=== PATIENT | male | born 1985 | race Caucasian/White ===

== ENCOUNTER → 2017-06-20 | Outpatient (CLI) | payer OTHER | LOC: LAB 10:43 | DX: R13.14 Dysphagia, pharyngoesophageal phase (principal) ==

== ENCOUNTER → 2017-06-28 | Day surgery (SDC) | payer OTHER | LOC: MSO 13:17 | DX: R13.10 Dysphagia, unspecified (principal); K20.0 Eosinophilic esophagitis; K22.2 Esophageal obstruction | CPT/HCPCS: 00740; A4649; J3010; J7120 ==